=== PATIENT | female | born 1980 | race African-American/Black ===

== ENCOUNTER → 2016-05-20 | Outpatient (CLI) | payer OTHER | END | disposition home or self-care (01) | LOC: CBAR 15:18 | DX: Z01.818 Encounter for other preprocedural examination (principal); E66.01 Morbid (severe) obesity due to excess calories | CPT/HCPCS: G0463 ==

== ENCOUNTER → 2016-06-26 | Outpatient (CLI) | payer OTHER | END | disposition home or self-care (01) | LOC: CBAR 06-17 12:23 | DX: Z01.812 Encounter for preprocedural laboratory examination (principal); E66.01 Morbid (severe) obesity due to excess calories | CPT/HCPCS: 36415; 84443; 86677; G0463 ==